=== PATIENT | female | born 1985 | race Caucasian/White ===

== ENCOUNTER 2022-03-04 09:44 | Emergency (ER) | payer OTHER ==
[2022-03-04 09:58] VITALS: BP 117/68; PULSE 85; RESP 20; TEMP 99.3; BMI 25.3
[2022-03-04] MEDS ORDERED: IBUPROFEN 600 MG TABLET (FP) PO ONE ×2 (11:27→11:29)
== END 2022-03-04 17:02 | disposition home or self-care (01) ==
LOC: JERFT 09:44 → JER 09:44 → JERFT 17:02
DX: S93.402A Sprain of unspecified ligament of left ankle, initial encounter (principal); W10.8XXA Fall (on) (from) other stairs and steps, initial encounter
CPT/HCPCS: 73610-TC-LT-FY; 73630-TC-LT; 99283-25

== ENCOUNTER 2023-10-08 08:45 | Emergency (ER) | payer OTHER ==
[2023-10-08 08:58] VITALS: BP 114/80; PULSE 87; RESP 20; TEMP 98.2; BMI 32.3
== END 2023-10-08 10:26 | disposition home or self-care (01) ==
LOC: JERFT 08:45
DX: S91.201A Unspecified open wound of right great toe with damage to nail, initial encounter (principal); W22.09XA Striking against other stationary object, initial encounter
CPT/HCPCS: 99283-25